=== PATIENT | female | born 1995 | race Caucasian/White ===

== ENCOUNTER 2016-04-27 17:58 | Emergency (ER) | payer OTHER ==
[2016-04-27 18:25] VITALS: BP 152/80
[2016-04-27 21:30] LABS: Hematocrit 36 % (35-47); Hemoglobin 11.6 g/dl (12.0-16.0); Mean Corpuscular HGB Conc 33 g/dl (31-36); Mean Corpuscular Hemoglobin 26 pg (27-31); Mean Corpuscular Volume 79 fL (80-97); Mean Platelet Volume 8 um3 (7.4-10.4); Red Blood Count 4.48 10^6/ul (4.0-5.4); Red Cell Distribution Width 16 % (10.5-15); White Blood Count 6.4 10^3/ul (3.5-10.8)
[2016-04-27 21:32] LABS: Urine Bilirubin Negative (Negative); Urine Glucose Negative (Negative); Urine Nitrite Negative (Negative)
[2016-04-27 21:45] LABS: ALT 14 U/L (7-52); AST 16 U/L (13-39); Alkaline Phosphatase 68 U/L (34-104); Anion Gap 4 mmol/L (2-11); BUN/Creatinine Ratio 23.5 (8-20); Blood Urea Nitrogen 16 mg/dL (6-24); C Reactive Protein 2.69 mg/L (< 5.00); CO2 Carbon Dioxide 25 mmol/L (22-32); Chloride 106 mmol/L (101-111); EGFR African American 143.4 (>60); EGFR Non-African American 111.5 (>60); Globulin 3.1 g/dL (2-4); Glucose 82 mg/dL (70-100); Lipase 29 U/L (11.0-82.0); Potassium 3.8 mmol/L (3.5-5.0); Sodium 135 mmol/L (133-145); Total Protein 7.1 g/dL (6.4-8.9)
--- NOTE | 2016-04-30 07:50 | ED ---
Vitor Dickey Rebecca, scribed for Florian Meyer MD on 04/27/16 at 2036 . GI/ HPI - HPI Summary HPI Summary: Pt is a 20 y/o F who presents to ED c/o blood in stool. Began 3 weeks ago and has been intermittent since onset. Blood is dark red, about 1 tsp when she wiped. Sx aggravated and alleviated by nothing. Denies CP, SOB, vaginal bleeding. Denies any pain. No chance of . PMHx stomach ulcer, treated out of town. IF THERE IS ONE, PLEASE SEE DICTATION BY DR. MEYER FOR FURTHER INFORMATION. - History of Current Complaint Chief Complaint: EDGeneral Time Seen by Provider: 04/27/16 20:34 Stated Complaint: BLOOD IN STOOL Hx Obtained From: Patient Onset/Duration: Started Weeks Ago - 3 weeks ago Timing: Intermittent Severity: Mild Current Severity: None Pain Intensity: 0 Associated Signs and Symptoms: Positive: Blood w/Stool, Other: - Denies SOB. Negative: Chest Pain Aggravating Factor(s): Nothing Alleviating Factor(s): Nothing - Additional Pertinent History Primary Care Physician: [id number] - Allergy/Home Medications Allergies/Adverse Reactions: Allergies Allergy/AdvReac Type Severity Reaction Status Date / Time Latex Allergy Hives Verified 03/26/16 18:48 Penicillins Allergy Anaphylatic Verified 03/26/16 18:48 Shock PMH/Surg Hx/FS Hx/Imm Hx Endocrine/Hematology History: Reports: Hx Systemic Lupus Erythematosus - takes plaquenil - followed by diecast machine operator, Hx Anemia - takes iron, Other Endocrine/ Hematological Disorders - h/o hematuria - possibly from plaquenil? Denies: Hx Diabetes Cardiovascular History: Denies: Hx Hypertension, Hx Pacemaker/ICD Respiratory History: Reports: Hx Asthma, Hx Pneumonia - Tx last month, feeling much better GI History: Reports: Hx Ulcer - Stomach ulcer History: Reports: Other Problems/Disorders - Hematuria--Rheumotology had f /u with renal results were WNL Denies: Hx Renal Disease Musculoskeletal History: Reports: Other Musculoskeletal History - LE discomfort d/t SLE-declines intervention Sensory History: Denies: Hx Hearing Aid Neurological History: Reports: Hx Migraine - takes topomax Psychiatric History: Reports: Hx Anxiety, Hx Eating Disorder Denies: Hx Panic Disorder, Hx of Violent Episodes Against Others - Surgical History Surgery Procedure, Year, and Place: TONSILECTOMY Infectious Disease History: No Infectious Disease History: Denies: Traveled Outside the [place] in Last 30 Days - Family History Known Family History: Negative: Hypertension, Diabetes - Social History Occupation: Employed Part-time, Student Alcohol Use: None Substance Use Type: Reports: None Hx Tobacco Use: No Smoking Status (MU): Never Smoked Tobacco Review of Systems - ROS Summary Review of Systems Summary: GENERAL: Awake, alert, oriented, no acute distress, very pleasant HEAD/FACE: Head is normocephalic, atraumatic EYES: Anicteric sclera, clear conjunctiva ENT: Mucous membranes moist, no erythema, no discharge, no lesions, neck is supple, trachea is midline, no JVD CARDIAC: Regular rate and rhythm, S1, S2, no rub, no murmur, no gallop, 2+ radial and pedal pulses bilaterally RESPIRATORY: Clear to auscultation bilaterally with no rales, rhonchi, or wheezes, non-tender ABDOMEN: Bowel sounds positive, no bruit, soft, non-tender, no CVA tenderness EXTREMITIES: No edema, warm, dry, moving all extremities in a grossly normal manner NEUROLOGICAL: Mood is appropriate, moving all extremities in a grossly normal manner IF THERE IS ONE, PLEASE SEE DICTATION BY DR. MEYER FOR FURTHER INFORMATION. Negative: Chest Pain Negative: Shortness Of Breath Positive: other - Blood in stool; Denies vaginal bleeding All Other Systems Reviewed And Are Negative: Yes Physical Exam - Summary Physical Exam Summary: GENERAL: Awake, alert, oriented, no acute distress, very pleasant HEAD/FACE: Head is normocephalic, atraumatic EYES: Anicteric sclera, clear conjunctiva ENT: Mucous membranes moist, no erythema, no discharge, no lesions, neck is supple, trachea is midline, no JVD CARDIAC: Regular rate and rhythm, S1, S2, no rub, no murmur, no gallop, 2+ radial and pedal pulses bilaterally RESPIRATORY: Clear to auscultation bilaterally with no rales, rhonchi, or wheezes, non-tender ABDOMEN: Bowel sounds positive, no bruit, soft, non-tender, no CVA tenderness EXTREMITIES: No edema, warm, dry, moving all extremities in a grossly normal manner NEUROLOGICAL: Mood is appropriate, moving all extremities in a grossly normal manner RECTAL: Normal - Medical Instructor present IF THERE IS ONE, PLEASE SEE DICTATION BY DR. MEYER FOR FURTHER INFORMATION. Triage Information Reviewed: Yes Vital Signs On Initial Exam: Initial Vitals Temp Pulse Resp BP Pulse Ox 98.2 F 91 18 152/80 99 04/27/16 18:22 04/27/16 18:22 04/27/16 18:22 04/27/16 18:22 04/27/16 18:22 Vital Signs Reviewed: Yes Diagnostics - Vital Signs Vital Signs Temp Pulse Resp BP Pulse Ox 04/27/16 18:22 98.2 F 91 18 152/80 99 - Laboratory Result Diagrams: 04/27/16 21:10 04/27/16 21:10 Lab Statement: Any lab studies that have been ordered have been reviewed, and results considered in the medical decision making process. GIGU Course/Dx - Diagnoses Provider Diagnoses: History of GI bleed, GI bleed, based on history Discharge - Discharge Plan Condition: Stable Disposition: HOME Patient Education Materials: Gastrointestinal Bleeding (ED) Referrals: No Primary Care Phys,NOPCP [Primary Care Provider] - The documentation as recorded by the Vitor jackman Rebecca accurately reflects the service I personally performed and the decisions made by , Florian Meyer MD.
== END 2016-04-27 22:38 | disposition home or self-care (01) ==
LOC: ED 17:58
DX: K92.2 Gastrointestinal hemorrhage, unspecified (principal)
CPT/HCPCS: 36415; 80053; 81003; 82272; 83605; 83690; 84702; 85025; 85610; 86140; 99283